=== PATIENT | female | born 1990 | race Hispanic/Latino ===

== ENCOUNTER 2017-01-10 16:15 | Emergency (ER) | payer SELFPAY ==
[2017-01-10] MEDS ORDERED: Acetaminophen 500 MG TAB ONE (17:57)
== END 2017-01-10 18:12 | disposition home or self-care (01) ==
LOC: SCSER 16:15
DX: J11.1 Influenza due to unidentified influenza virus with other respiratory manifestations (principal)
CPT/HCPCS: 99283